=== PATIENT | male | born 1930 | race Caucasian/White ===

== ENCOUNTER → 2016-11-10 | Outpatient (REF) ==
[~2016-11-10] MED LIST: ACET-654 PO; ACTO45TA6 PO; ASPI81TAEC PO; ATOR1TAB21 PO; BICA50TA2 PO; CIPR500T89 PO; CLOP75TA2 PO; DOCU100C PO; FINA5TAB2 PO; FLOM5CAP PO; INSUDET SC; INSUR SC; LACT20EL PO; LOSA100T36 PO; METF500T PO; SENN8.6T10 PO; VITA100066 PO
== END ==
LOC: M LAB REF 16:00
DX: K52.9 Noninfective gastroenteritis and colitis, unspecified (principal)

== ENCOUNTER → 2017-04-23 | Outpatient (REF) | payer MEDICARE, OTHER, MEDICAID ==
[~2017-04-23] MED LIST changes: -ACET-654 PO; +ACET1TAB17 PO; +ACTO45TA12 PO; -ACTO45TA6 PO; +CIPR-249 PO; -CIPR500T89 PO; -DOCU100C PO; +DOCU100C16 PO; -METF500T PO; +METF500T13 PO; +SENN1TAB10 PO; -SENN8.6T10 PO
== END ==
LOC: M LAB REF 13:10
DX: D22.9 Melanocytic nevi, unspecified (principal)

== ENCOUNTER → 2017-05-16 | Outpatient (REF) | payer MEDICARE, OTHER, MEDICAID | LOC: M LAB REF 13:45 | DX: C44.722 Squamous cell carcinoma of skin of right lower limb, including hip (principal) ==